=== PATIENT | female | born 1945 | race African-American/Black ===

== ENCOUNTER 2016-07-11 07:05 | Outpatient (CLI) | payer MEDICARE ==
--- NOTE | 2016-07-11 14:53 | Ultrasound Report ---
RIGHT UPPER QUADRANT ULTRASOUND: HISTORY: Hepatitis B. Technique: Transabdominal ultrasound imaging with Doppler interrogation. FINDINGS: The gallbladder is sonolucent with no evidence of stones, polyps or wall thickening. The common duct is normal in caliber. Images of the liver parenchyma, pancreas, right kidney and aorta are within normal limits. 2.3 cm cyst at the superior pole of the right kidney is stable. No perihepatic ascites. IMPRESSION: Unremarkable right upper quadrant ultrasound. Stable right renal cyst. No change since 11/16/15.
== END 2016-07-11 07:06 | disposition home or self-care (01) ==
LOC: US 07:05
PROVIDERS: ATTEND Internal Medicine Gastroenterology
DX: B19.10 Unspecified viral hepatitis B without hepatic coma (principal); N28.1 Cyst of kidney, acquired
CPT/HCPCS: 76705

== ENCOUNTER 2019-10-21 10:27 | Emergency (ER) | payer MEDICARE ==
[2019-10-21] MEDS ORDERED: ONDANSETRON 4 MG ODT TAB PO ONE (13:25)
[2019-10-21] MEDS ORDERED: ACETAMINOPHEN 325 MG TAB PO ONE (13:25)
--- NOTE | 2019-10-21 13:38 | Emergency Department Report ---
- General Time Seen by Provider: 10/21/19 13:24 Source: patient Mode of arrival: Ambulatory Limitations: No Limitations - History of Present Illness Initial Comments: Patient is a 74-year-old female presents emergency room with complaints of a fever that began 3 days ago. She has associated sore throat, nausea, vomiting, body aches, cough. Patient states that she is concerned for COVID-19. She denies any diarrhea, shortness of breath, chest pain, abdominal pain. She has a past medical history of hepatitis B. She denies any allergies to medications. Patient states that she has been taking ibuprofen, Tylenol, TheraFlu. She states that she did not take any medication today. - Related Data Home Medications Medication Instructions Recorded Confirmed Last Taken Dexlansoprazole [Dexilant] 60 mg PO QDAY 08/04/15 08/04/15 Unknown Fenofibrate [Lofibra] 54 mg PO QDAY 08/04/15 08/04/15 08/04/15 [place]-3/Dha/Epa/Fish Oil [[place] 3 1 each PO QDAY 08/04/15 08/04/15 Unknown 500 Softgel] Sucralfate 1 gm PO QDAY 08/04/15 08/04/15 Unknown Previous Rx's Medication Instructions Recorded Last Taken Type Benzocaine/Mentho [Cepacol X 1 each MM Q6HR PRN #1 packet 10/21/19 Unknown Rx Strength] Ciprofloxacin HCl [Ciprofloxacin 250 mg PO BID 7 Days #14 tablet 10/21/19 Unknown Rx TAB] Miconazole Nitrate [Miconazole 7] 100 mg VG QHS #7 supp.vag 10/21/19 Unknown Rx Promethazine [Phenergan] 25 mg PO Q8HR PRN #7 tab 10/21/19 Unknown Rx Allergies Allergy/AdvReac Type Severity Reaction Status Date / Time Penicillins Allergy Hives Verified 12/07/12 05:26 ED Review of Systems ROS: Stated complaint: Other details as noted in HPI Comment: All other systems reviewed and negative ED Past Medical Hx - Past Medical History Hx Liver Disease: Yes Additional medical history: Vertigo - Surgical History Additional Surgical History: gall bladder surgery - Social History Smoking Status: Never Smoker Substance Use Type: None - Medications Home Medications: Home Medications Medication Instructions Recorded Confirmed Last Taken Type Dexlansoprazole [Dexilant] 60 mg PO QDAY 08/04/15 08/04/15 Unknown History Fenofibrate [Lofibra] 54 mg PO QDAY 08/04/15 08/04/15 08/04/15 History [place]-3/Dha/Epa/Fish Oil [[place] 3 1 each PO QDAY 08/04/15 08/04/15 Unknown History 500 Softgel] Sucralfate 1 gm PO QDAY 08/04/15 08/04/15 Unknown History Benzocaine/Mentho [Cepacol X 1 each MM Q6HR PRN #1 packet 10/21/19 Unknown Rx Strength] Ciprofloxacin HCl [Ciprofloxacin 250 mg PO BID 7 Days #14 tablet 10/21/19 Unknown Rx TAB] Miconazole Nitrate [Miconazole 7] 100 mg VG QHS #7 supp.vag 10/21/19 Unknown Rx Promethazine [Phenergan] 25 mg PO Q8HR PRN #7 tab 10/21/19 Unknown Rx ED Physical Exam - General General appearance: alert, in no apparent distress - Head Head exam: Present: atraumatic, normocephalic - Eye Eye exam: Present: normal appearance - ENT ENT exam: Present: mucous membranes moist, other (mild posterior oropharynx erythema, no tonsillar hypertrophy or exudates, no signs of thrush, uvula is midline, no uvular edema or deviation, no trismus, no tongue elevation, no m uffled voice) - Respiratory Respiratory exam: Present: normal lung sounds bilaterally. Absent: respiratory distress, wheezes, rales, rhonchi, stridor, chest wall tenderness, accessory muscle use, decreased breath sounds, prolonged expiratory - Cardiovascular Cardiovascular Exam: Present: regular rate, normal rhythm, normal heart sounds. Absent: systolic murmur, diastolic murmur, rubs, gallop - Neurological Exam Neurological exam: Present: alert, oriented X3 - Psychiatric Psychiatric exam: Present: normal affect, normal mood - Skin Skin exam: Present: warm, dry, intact ED Course Vital Signs 10/21/19 15:22 Temperature 99.4 F Pulse Rate 83 Respiratory 17 Rate Blood Pressure 112/72 O2 Sat by Pulse 97 Oximetry ED Medical Decision Making - Lab Data Result diagrams: 10/21/19 13:37 10/21/19 13:37 Lab Results 10/21/19 10/21/19 10/21/19 Range/Units 13:37 13:37 15:00 WBC 6.9 (4.5-11.0) K/mm3 RBC 5.23 H (3.65-5.03) M/mm3 Hgb 15.1 H (10.1-14.3) gm/dl Hct 46.8 H (30.3-42.9) % MCV 90 (79-97) fl MCH 29 (28-32) pg MCHC 32 (30-34) % RDW 15.4 H (13.2-15.2) % Plt Count 253 (140-440) K/mm3 Lymph % (Auto) 13.6 (13.4-35.0) % Duval % (Auto) 9.5 H (0.0-7.3) % Eos % (Auto) 0.0 (0.0-4.3) % Baso % (Auto) 0.5 (0.0-1.8) % Lymph # 0.9 L (1.2-5.4) K/mm3 Duval # 0.7 (0.0-0.8) K/mm3 Eos # 0.0 (0.0-0.4) K/mm3 Baso # 0.0 (0.0-0.1) K/mm3 Seg Neutrophils % 76.4 H (40.0-70.0) % Seg Neutrophils # 5.3 (1.8-7.7) K/mm3 Sodium 135 L (137-145) mmol/L Potassium 4.8 (3.6-5.0) mmol/L Chloride 97.7 L (98-107) mmol/L Carbon Dioxide 22 (22-30) mmol/L Anion Gap 20 mmol/L BUN 11 (7-17) mg/dL Creatinine 0.8 (0.7-1.2) mg/dL Estimated GFR > 60 ml/min BUN/Creatinine Ratio 14 % Glucose 95 (65-100) mg/dL Calcium 9.3 (8.4-10.2) mg/dL Total Bilirubin 0.40 (0.1-1.2) mg/dL AST 56 H (5-40) units/L ALT 41 (7-56) units/L Alkaline Phosphatase 50 (35-129) units/L Total Protein 7.5 (6.3-8.2) g/dL Albumin 4.8 (3.9-5) g/dL Albumin/Globulin Ratio 1.8 % Urine Color Yellow (Yellow) Urine Turbidity Clear (Clear) Urine pH 6.0 (5.0-7.0) Ur Specific Randolph 1.011 (1.003-1.030) Urine Protein <15 mg/dl (Negative) mg/dL Urine Glucose (UA) Neg (Negative) mg/dL Urine Ketones Tr (Negative) mg/dL Urine Blood Neg (Negative) Urine Nitrite Neg (Negative) Urine Bilirubin Neg (Negative) Urine Urobilinogen < 2.0 (<2.0) mg/dL Ur Leukocyte Esterase Lg (Negative) Urine WBC (Auto) 46.0 H (0.0-6.0) /HPF Urine RBC (Auto) 2.0 (0.0-6.0) /HPF U Epithel Cells (Auto) 2.0 (0-13.0) /HPF Urine Mucus Few /HPF Urine Yeast (Budding) Few /HPF Group A Strep Rapid (Negative) 10/21/19 Range/Units Unknown WBC (4.5-11.0) K/mm3 RBC (3.65-5.03) M/mm3 Hgb (10.1-14.3) gm/dl Hct (30.3-42.9) % MCV (79-97) fl MCH (28-32) pg MCHC (30-34) % RDW (13.2-15.2) % Plt Count (140-440) K/mm3 Lymph % (Auto) (13.4-35.0) % Duval % (Auto) (0.0-7.3) % Eos % (Auto) (0.0-4.3) % Baso % (Auto) (0.0-1.8) % Lymph # (1.2-5.4) K/mm3 Duval # (0.0-0.8) K/mm3 Eos # (0.0-0.4) K/mm3 Baso # (0.0-0.1) K/mm3 Seg Neutrophils % (40.0-70.0) % Seg Neutrophils # (1.8-7.7) K/mm3 Sodium (137-145) mmol/L Potassium (3.6-5.0) mmol/L Chloride (98-107) mmol/L Carbon Dioxide (22-30) mmol/L Anion Gap mmol/L BUN (7-17) mg/dL Creatinine (0.7-1.2) mg/dL Estimated GFR ml/min BUN/Creatinine Ratio % Glucose (65-100) mg/dL Calcium (8.4-10.2) mg/dL Total Bilirubin (0.1-1.2) mg/dL AST (5-40) units/L ALT (7-56) units/L Alkaline Phosphatase (35-129) units/L Total Protein (6.3-8.2) g/dL Albumin (3.9-5) g/dL Albumin/Globulin Ratio % Urine Color (Yellow) Urine Turbidity (Clear) Urine pH (5.0-7.0) Ur Specific Randolph (1.003-1.030) Urine Protein (Negative) mg/dL Urine Glucose (UA) (Negative) mg/dL Urine Ketones (Negative) mg/dL Urine Blood (Negative) Urine Nitrite (Negative) Urine Bilirubin (Negative) Urine Urobilinogen (<2.0) mg/dL Ur Leukocyte Esterase (Negative) Urine WBC (Auto) (0.0-6.0) /HPF Urine RBC (Auto) (0.0-6.0) /HPF U Epithel Cells (Auto) (0-13.0) /HPF Urine Mucus /HPF Urine Yeast (Budding) /HPF Group A Strep Rapid Negative (Negative) Vital Signs 10/21/19 15:22 Temperature 99.4 F Pulse Rate 83 Respiratory 17 Rate Blood Pressure 112/72 O2 Sat by Pulse 97 Oximetry - Radiology Data Radiology results: report reviewed CHEST 2 VIEWS INDICATION: cough, fever. COMPARISON: None FINDINGS: Support devices: None. Heart: Within normal limits. Lungs/pleura: No acute air space or interstitial disease. No pneumothorax. Additional findings: None. IMPRESSION: No acute findings. Signer Name: Chris Maravilla Jr, MD Signed: 10/21/2019 2:42 PM Workstation Name: [id number] Transcribed By: TTR Dictated By: CHRIS MARAVILLA JR, MD Electronically Authenticated By: CHRIS MARAVILLA JR, MD Signed Date/Time: 10/21/191441 DD/ 40 TD/TT: - Medical Decision Making Patient is a 74-year-old female presents emergency room with complaints of a fever that began 3 days ago. She has associated sore throat, nausea, vomiting, body aches, cough. Patient states that she is concerned for COVID-19. She denies any diarrhea, shortness of breath, chest pain, abdominal pain. She has a past medical history of hepatitis B. She denies any allergies to medications. Patient states that she has been taking ibuprofen, Tylenol, TheraFlu. She states that she did not take any medication today. Vitals are normal. on exam: mild posterior oropharynx erythema, no tonsillar hypertrophy or exudates, no signs of thrush, uvula is midline, no uvular edema or deviation, no trismus, no tongue elevation, no muffled voice, breath sounds are clear bilaterally, no w/r/r. Rapid strep is negative. Labs are stable. UA shows evidence of UTI with white blood cells and leukocyte esterase. There is yeast present in the urine. CXR: No acute findings. 2-minute ambulating oxygen saturation performed by nurse and patient maintained sats of 99% on room air. Patient symptoms could be related to urinary tract infection however patient is presenting during a COVID-19 pandemic and suggested outpatient COVID-19 testing with patient, she does not meet inpatient or testing criteria for this hospital, her x-ray is normal, no hypoxia, no fever, no tachycardia, exercise oxygen saturation is normal. Discussed in detail with patient very strict return precautions. Discussed self quarantine. Patient given prescription for Phenergan, ciprofloxacin, miconazole, Cepacol. Advised patient Please take medication as prescribed. Please increase your fluid intake over the next several days. May take Tylenol as needed for fever or body aches. Follow-up with a primary care doctor for reexamination in 2 days. Return to emergency room immediately for any new or worsening symptoms including but not limited to difficulty breathing, shortness of breath, severe chest pain, unable to tolerate by mouth intake, etc. Please self quarantine for 2 weeks from the onset of your symptoms. Please do not go out in public. If you are around others at home please wear a mask. If you need to cough or sneeze please do so in a napkin and immediately throw it away and immediately wash your hands. Wash your hands frequently. Wipe everything down. Recommend for you to get COVID-19 testing, may have this done at primary care doctor, health department, [facility] drive thru testing centers. Critical care attestation.: If time is entered above; I have spent that time in minutes in the direct care of this critically ill patient, excluding procedure time. ED Disposition Clinical Impression: Sore throat, Cough, Yeast vaginitis Fever Qualifiers: Fever type: unspecified Qualified Code(s): R50.9 - Fever, unspecified Nausea & vomiting Qualifiers: Vomiting type: unspecified Vomiting Intractability: non-intractable Qualified Code(s): R11.2 - Nausea with vomiting, unspecified UTI (urinary tract infection) Qualifiers: Urinary tract infection type: acute cystitis Hematuria presence: without hematuria Qualified Code(s): N30.00 - Acute cystitis without hematuria Disposition: TO HOME OR SELFCARE Is pt being admited?: No Does the pt Need Aspirin: No Condition: Stable Instructions: COVID-19, Urinary Tract Infection in Women (ED), Vulvovaginal Candidiasis (ED), Viral Syndrome (ED) Additional Instructions: Please take medication as prescribed. Please increase your fluid intake over the next several days. May take Tylenol as needed for fever or body aches. Follow-up with a primary care doctor for reexamination in 2 days. Return to emergency room immediately for any new or worsening symptoms including but not limited to difficulty breathing, shortness of breath, severe chest pain, unable to tolerate by mouth intake, etc. Please self quarantine for 2 weeks from the onset of your symptoms. Please do not go out in public. If you are around others at home please wear a mask. If you need to cough or sneeze please do so in a napkin and immediately throw it away and immediately wash your hands. Wash your hands frequently. Wipe everything down. Recommend for you to get COVID- 19 testing, may have this done at primary care doctor, health department, [facility] drive thru testing centers. Prescriptions: Miconazole Nitrate [Miconazole 7] 100 mg VG QHS #7 supp.vag Benzocaine/Mentho [Cepacol X Strength] 1 each MM Q6HR PRN #1 packet PRN Reason: sore throat Ciprofloxacin HCl [Ciprofloxacin TAB] 250 mg PO BID 7 Days #14 tablet Promethazine [Phenergan] 25 mg PO Q8HR PRN #7 tab PRN Reason: Nausea And Vomiting Referrals: ABEL DAWSON, PAC [Primary Care Provider] - 2-3 Days Time of Disposition: 15:28 Print Language: AZERI
[2019-10-21 13:52] LABS: Basophils % (Auto) 0.5 % (0.0-1.8); Hematocrit 46.8 % (30.3-42.9); Hemoglobin 15.1 gm/dl (10.1-14.3); Lymphocytes # (Auto) 0.9 K/mm3 (1.2-5.4); Lymphocytes % (Auto) 13.6 % (13.4-35.0); Mean Corpuscular HGB Conc 32 % (30-34); Mean Corpuscular Volume 90 fl (79-97); Monocytes # (Auto) 0.7 K/mm3 (0.0-0.8); Monocytes % (Auto) 9.5 % (0.0-7.3); Platelet Count 253 K/mm3 (140-440); Red Blood Count 5.23 M/mm3 (3.65-5.03); Red Cell Distribution Width 15.4 % (13.2-15.2)
[2019-10-21 14:41] LABS: Alanine Aminotransferase 41 units/L (7-56); Albumin 4.8 g/dL (3.9-5); BUN/Creatinine Ratio 14; Blood Urea Nitrogen 11 mg/dL (7-17); Calcium 9.3 mg/dL (8.4-10.2); Hemolysis Index 43
--- NOTE | 2019-10-21 14:46 | XRay Report ---
CHEST 2 VIEWS INDICATION: cough, fever. COMPARISON: None FINDINGS: Support devices: None. Heart: Within normal limits. Lungs/pleura: No acute air space or interstitial disease. No pneumothorax. Additional findings: None. IMPRESSION: No acute findings. Signer Name: Chris Chery Jr, MD Signed: 10/21/2019 2:42 PM Workstation Name: [id number]
[2019-10-21 15:22] LABS: Bilirubin,Urine NEG (Negative); Blood,Urine NEG (Negative); Color,Urine Yellow (Yellow); Mucus,Urine FEW /HPF; Protein,Urine <15 mg/dL mg/dL (Negative); Urobilinogen,Urine < 2.0 mg/dL (<2.0)
[2019-10-21 15:26] VITALS: BP 112/72
== END 2019-10-21 16:22 | disposition home or self-care (01) ==
LOC: ED 10:27
DX: N76.0 Acute vaginitis (principal); B97.89 Other viral agents as the cause of diseases classified elsewhere; N39.0 Urinary tract infection, site not specified; Z79.899 Other long term (current) drug therapy; Z98.890 Other specified postprocedural states; Z88.0 Allergy status to penicillin
CPT/HCPCS: 36415; 71046; 80053; 81001; 85025; 87086; 87116; 87430; Q0162

== ENCOUNTER 2021-05-08 11:28 | Emergency (ER) | payer MEDICARE ==
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
[2021-05-08 14:15] VITALS: BP 108/58
== END 2021-05-08 14:18 | disposition home or self-care (01) ==
LOC: ED 11:28
DX: R51.9 Headache, unspecified (principal); I10 Essential (primary) hypertension; Z86.73 Personal history of transient ischemic attack (TIA), and cerebral infarction without residual deficits; K76.9 Liver disease, unspecified; Z79.899 Other long term (current) drug therapy; Z98.890 Other specified postprocedural states; Z88.0 Allergy status to penicillin; Y08.89XA Assault by other specified means, initial encounter; Y93.89 Activity, other specified; Y92.89 Other specified places as the place of occurrence of the external cause; Y99.8 Other external cause status
CPT/HCPCS: 70450; 99284

== ENCOUNTER 2021-09-10 11:17 | Emergency (ER) | payer MEDICARE ==
--- NOTE | 2021-09-10 11:48 | Emergency Department Report ---
HPI - General Chief Complaint: Neuro Symptoms/Deficit Time Seen by Provider: 09/10/21 11:43 - HPI HPI: [facility]/room 22 Patient is a 76-year-old female present with a chief complaint of right-sided facial numbness and dysarthria. The patient states she went to sleep last night at midnight in her usual state of health but when she awakened this morning at 08: 00 she noticed she had pain and numbness to the right side of her face in addition to difficulty speaking. Patient denies paresthesia elsewhere ED Past Medical Hx - Past Medical History Previous Medical History?: Yes Hx Hypertension: Yes Hx CVA: Yes Hx Liver Disease: Yes Additional medical history: Vertigo. Hep B - Surgical History Past Surgical History?: Yes Additional Surgical History: gall bladder surgery - Family History Family history: no significant - Social History Smoking Status: Never Smoker Substance Use Type: None - Medications Home Medications: Home Medications Medication Instructions Recorded Confirmed Last Taken Type Dexlansoprazole [Dexilant] 60 mg PO QDAY 08/04/15 08/04/15 Unknown History Fenofibrate [Lofibra] 54 mg PO QDAY 08/04/15 08/04/15 08/04/15 History [place]-3/Dha/Epa/Fish Oil [[place] 3 1 each PO QDAY 08/04/15 08/04/15 Unknown History 500 Softgel] Sucralfate 1 gm PO QDAY 08/04/15 08/04/15 Unknown History Benzocaine/Mentho [Cepacol X 1 each MM Q6HR PRN #1 packet 10/21/19 Unknown Rx Strength] Ciprofloxacin HCl [Ciprofloxacin 250 mg PO BID 7 Days #14 tablet 10/21/19 Unknown Rx TAB] Miconazole Nitrate [Miconazole 7] 100 mg VG QHS #7 supp.vag 10/21/19 Unknown Rx Promethazine [Phenergan] 25 mg PO Q8HR PRN #7 tab 10/21/19 Unknown Rx ED Review of Systems ROS: Stated complaint: RT SIDE FACE NUMBNESS SINCE 8AM Other details as noted in HPI Constitutional: no symptoms reported Eyes: denies: eye pain ENT: denies: throat pain Respiratory: no symptoms reported Cardiovascular: denies: chest pain Endocrine: no symptoms reported Gastrointestinal: denies: abdominal pain Genitourinary: denies: dysuria Musculoskeletal: denies: back pain Neurological: headache, paresthesias Physical Exam - Physical Exam Vital Signs: Vital Signs 09/10/21 11:30 Temperature 97.8 F Pulse Rate 91 H Respiratory 18 Rate Blood Pressure 119/77 [Right] O2 Sat by Pulse 95 Oximetry Physical Exam: GENERAL: The patient is well-developed well-nourished female sitting in wheelchair not appearing to be in acute distress. [] HEENT: Normocephalic. Atraumatic. Extraocular motions are intact. Patient has moist mucous membranes. NECK: Supple. Trachea midline CHEST/LUNGS: Clear to auscultation. There is no respiratory distress noted. HEART/CARDIOVASCULAR: Regular. There is no tachycardia. There is no gallop rub or murmur. ABDOMEN: Abdomen is soft, nontender. Patient has normal bowel sounds. There is no abdominal distention. SKIN: There is no rash. There is no edema. There is no diaphoresis. NEURO: The patient is awake, alert, and oriented. The patient is cooperative. Cranial nerves II through XII grossly intact with exception of V1, V2, V3 on the right with the patient has decreased sensation to light touch. There is forehead sparing. The patient has normal speech. GCS 15 MUSCULOSKELETAL: There is no evidence of acute injury. ED Course Vital Signs 09/10/21 11:30 Temperature 97.8 F Pulse Rate 91 H Respiratory 18 Rate Blood Pressure 119/77 [Right] O2 Sat by Pulse 95 Oximetry - Reevaluation(s) Reevaluation #1: 09/10/21 13:45 Patient states her speech difficulty and paresthesia has resolved ED Medical Decision Making - Lab Data Result diagrams: 09/10/21 12:22 09/10/21 12:22 Laboratory Tests 09/10/21 09/10/21 09/10/21 12:22 12:22 12:22 WBC 6.6 RBC 4.65 Hgb 14.0 Hct 42.1 MCV 90 MCH 30 MCHC 33 RDW 15.2 Plt Count 266 Lymph % (Auto) 18.7 Gilliam % (Auto) 7.9 H Eos % (Auto) 0.7 Baso % (Auto) 0.7 Lymph # (Auto) 1.2 Gilliam # (Auto) 0.5 Eos # (Auto) 0.0 Baso # (Auto) 0.0 Seg Neutrophils % 72.0 H Seg Neutrophils # 4.8 PT 13.4 INR 0.92 APTT 32.0 Thrombin Time 35.5 H Sodium 136 L Potassium 3.8 Chloride 99.2 Carbon Dioxide 28 Anion Gap 13 BUN 13 Creatinine 0.7 Estimated GFR > 60 BUN/Creatinine Ratio 19 Glucose 102 H Calcium 8.6 - EKG Data -: EKG Interpreted by Me EKG shows normal: sinus rhythm Rate: normal - EKG Data When compared to previous EKG there are: previous EKG unavailable Interpretation: nonspecific ST-T wave gurjit (Biphasic T waves lead V2) - Radiology Data Radiology results: report reviewed (CT head, CT brain, CTA neck), image reviewed (CT head, CTA brain, CTA neck) [facility] [address] [place] [address] Cat Scan Report Signed Patient: MAYRA HYMAN MR#: [id number] : 1945 Acct:[id number] Age/Sex: 76 / F ADM Date: 09/10/21 Loc: ED Attending Dr: Ordering Physician: ARI MENCHACA MD Date of Service: 09/10/21 Procedure(s): CT head/brain wo con Accession Number(s): [id number] cc: ARI MENCHACA MD CT HEAD WITHOUT CONTRAST INDICATION / CLINICAL INFORMATION: CODE STROKE PROTOCOL!! Right facial numbness, difficulty speaking. TECHNIQUE: All CT scans at this location are performed using CT dose reduction for ALARA by means of automated exposure control. COMPARISON: CT dated 05/08/21 FINDINGS: HEMORRHAGE: None. EXTRA-AXIAL SPACES: Normal in size and morphology for the patient's age. VENTRICULAR SYSTEM: Normal in size and morphology for the patient's age. CEREBRAL PARENCHYMA: No significant abnormality. No acute territorial infarct. MIDLINE SHIFT / HERNIATION: None. CEREBELLUM / BRAINSTEM: No significant abnormality. ORBITS: Normal as visualized. SOFT TISSUES: No significant abnormality. SKULL: No significant abnormality. PARANASAL SINUSES / MASTOID AIR CELLS: Normal as visualized. ADDITIONAL FINDINGS: None. IMPRESSION: 1. No acute intracranial abnormality. No significant change. CODE STROKE Time of Communication (PROP MAKER/CDT): 11:12 AM Licensed Practitioner Receiving Report: Dr. Menchaca in the ED Signer Name: Anjelica Martinez MD Signed: 09/10/2021 12:11 PM Workstation Name: [email or web address] Transcribed By: DT Dictated By: Juan Jose Martinez MD Electronically Authenticated By: Juan Jose Martinez MD Signed Date/Time: 09/10/21 1211 DD/ 1208 TD/TT: [facility] [address] [place] [address] Cat Scan Report Signed Patient: MAYRA HYMAN MR#: [id number] : 1945 Acct:[id number] Age/Sex: 76 / F ADM Date: 09/10/21 Loc: ED Attending Dr: Ordering Physician: ARI MENCHACA MD Date of Service: 09/10/21 Procedure(s): CT angio head Accession Number(s): [id number] cc: ARI MENCHACA MD CTA NECK WITH CON TRAST HISTORY: Right facial numbness; difficulty speaking COMPARISON: None. TECHNIQUE: Routine CTA of the neck was performed. 3-D/MIP reformats were postprocessed. Percentage stenosis is determined by direct quantitative measurements of diseased internal carotid artery diameter compared with normal distal internal carotid artery reference segments or by criteria similar to NASCET where applicable.All CT scans at this location are performed using CT dose reduction for ALARA by means of automated exposure control CONTRAST: 100 ml of Omnipaque 350 FINDINGS: Aortic arch: No significant abnormality. Cervical vertebral arteries: No significant abnormality. Common carotid arteries: No significant abnormality. Carotid bifurcations: Normal bilaterally Cervical internal carotid arteries: No significant abnormality. Additional findings: None. IMPRESSION: 1. No significant abnormality. CTA HEAD WITH CONTRAST TECHNIQUE: Routine non-contrast CT Head, CTA of the head and post-contrast CT Head are performed. 3-D/MIP reformats postprocessed. All CT scans at this location are performed using CT dose reduction for ALARA by means of automated exposure control FINDINGS: CTA Head: Intracranial vertebral arteries: No significant abnormality. Basilar artery: No significant abnormality. Posterior cerebral arteries: No significant abnormality. Intracranial internal carotid arteries: No significant abnormality. Anterior cerebral arteries: No significant abnormality. Middle cerebral arteries: No significant abnormality. Dural venous sinuses:Not optimally opacified. No significant abnormality. Additional findings: None. IMPRESSION: 1. No significant abnormality. Signer Name: Elizabeth Macedo MD Signed: 09/10/2021 1:01 PM Workstation Name: [id number] Transcribed By: BS Dictated By: Elizabeth Bocanegra MD Electronically Authenticated By: Elizabeth Bocanegra MD Signed Date/Time: 09/10/21 1301 DD/ 1256 - Differential Diagnosis CVA, trigeminal neuralgia, Webb's palsy Critical care attestation.: If time is entered above; I have spent that time in minutes in the direct care of this critically ill patient, excluding procedure time. ED Disposition Clinical Impression: TIA (transient ischemic attack) Disposition: ADMITTED INPATIENT Is pt being admited?: Yes Does the pt Need Aspirin: Yes Condition: Fair Time of Disposition: 13:45 (Care transferred to hospitalist (Dr. Gomez))
--- NOTE | 2021-09-10 11:54 | Consultation ---
History of Present Illness Consult date: 09/10/21 History of present illness: [place] [facility] Consult Note # Demographics Consult Type: Acute Stroke Level 1 (0-4.5 hrs) Patient Location: Emergency Room First Name: Nael Villela Last Name: Tracey Date of : 1945 Age: 76 Gender: Female Facility: [facility] Time of Initial Page ( Time): 09/10/2021, 11:40 Time of Return Call ( Time): 09/10/2021, 11:40 # HPI Chief Complaint: numbness History: Patient went to bed at midnight, & upon awakening at 8am had right facial numbness & difficulty speaking (latter resolved). The patient reported hitting the right side of her head 2 or 3 months ago. Last Known Normal: I have collected independent history specific to time last normal or last known well. We have collaborated with the provider and at this time, we have the most current timeline with the information that is available. Midnight 09/10/21 Duration: constant hours Possible Thrombolytic candidate: not on warfarin or NOACs no intracranial hemorrhage history no recent major surgery Quality: numbness # Scores Time of exam and NIHSS ( Time): 09/10/2021, 11:43 Level of Consciousness 1a: [0] = Alert; keenly responsive LOC Questions 1b: [0] = Answers both questions correctly LOC Commands 1c: [0] = Performs both tasks correctly Best Gaze 2: [0] = Normal Visual 3: [0] = No visual loss Facial Palsy 4: [0] = Normal symmetrical movements Motor Arm Left 5a: [0] = No drift Motor Arm Right 5b: [0] = No drift Motor Leg Left 6a: [0] = No drift Motor Leg Right 6b: [0] = No drift Limb Ataxia 7: [0] = Absent Sensory 8: [1] = Ukuw-pd-qsuxolja sensory loss Best Language 9: [0] = No aphasia Dysarthria 10: [0] = Normal Extinction and Inattention 11: [0] = No abnormality NIHSS Total: 1 Modified Prosper Scale (mRS) pre-stroke: [0] = No Symptoms Modified Elberta Scale total: 0 VAN Screening: Negative # Exam Vitals: 97.8 SBP: 119 DBP: 77 Mental Status: awake alert and oriented x 3 follows commands Language: normal speech Sensory: decreased sensation right face # ROS Pulmonary: no shortness of breath Cardiovascular: no chest pain # PMH-FH-SH Past Medical History: hyperlipidemia hypertension stroke Medications: antihypertensive lipid lowering agent plavix Allergies: penicillin # Assessment Impression: Ischemic Stroke (Acute) # Plan Thrombolytic/Intervention: NOT IV Thrombolysis or IA Intervention candidate Thrombolytic Exclusion: > 4.5 hours Woke up with symptoms Target Blood Pressure: SBP < [address] results Labs: B12 CBC comprehensive metabolic panel ESR hemoglobin A1c lipid panel thiamine troponin TSH urine drug screen ua Imaging: (urgency: STAT): CT Head without contrast CT Angiogram Head and CT Angiogram Neck AND call back with results if abnormal Imaging: (urgency: routine): MRI Brain without contrast Diagnostic Test: echo without bubble study Therapy/Evaluation: NPO until swallow evaluation PT/OT evaluation Medication: aspirin 81 mg PLUS clopidogrel (Plavix) 75 mg for 21 days, then monotherapy therafter start statin with goal of LDL < [address] results DVT Prophylaxis: SCD chemical DVT prophylaxis Other: permissive hypertension telemetry monitoring I have discussed my recommendations with the referring provider Disposition: admit Medications and Allergies Allergies Allergy/AdvReac Type Severity Reaction Status Date / Time Penicillins Allergy Hives Verified 12/07/12 05:26 Home Medications Medication Instructions Recorded Confirmed Last Taken Type Dexlansoprazole [Dexilant] 60 mg PO QDAY 08/04/15 08/04/15 Unknown History Fenofibrate [Lofibra] 54 mg PO QDAY 08/04/15 08/04/15 08/04/15 History [place]-3/Dha/Epa/Fish Oil [[place] 3 1 each PO QDAY 08/04/15 08/04/15 Unknown History 500 Softgel] Sucralfate 1 gm PO QDAY 08/04/15 08/04/15 Unknown History Benzocaine/Mentho [Cepacol X 1 each MM Q6HR PRN #1 packet 10/21/19 Unknown Rx Strength] Ciprofloxacin HCl [Ciprofloxacin 250 mg PO BID 7 Days #14 tablet 10/21/19 Unknown Rx TAB] Miconazole Nitrate [Miconazole 7] 100 mg VG QHS #7 supp.vag 10/21/19 Unknown Rx Promethazine [Phenergan] 25 mg PO Q8HR PRN #7 tab 10/21/19 Unknown Rx Physical Examination - Vital Signs Vital Signs: Vital Signs Temp Pulse Resp BP Pulse Ox 97.8 F 91 H 18 119/77 95 09/10/21 11:30 09/10/21 11:30 09/10/21 11:30 09/10/21 11:30 09/10/21 11:30
[2021-09-10] MEDS ORDERED: ASPIRIN 325 MG TAB PO ONE (12:11)
--- NOTE | 2021-09-10 12:15 | Cat Scan Report ---
CT HEAD WITHOUT CONTRAST INDICATION / CLINICAL INFORMATION: CODE STROKE PROTOCOL!! Right facial numbness, difficulty speaking. TECHNIQUE: All CT scans at this location are performed using CT dose reduction for ALARA by means of automated exposure control. COMPARISON: CT dated 05/08/21 FINDINGS: HEMORRHAGE: None. EXTRA-AXIAL SPACES: Normal in size and morphology for the patient's age. VENTRICULAR SYSTEM: Normal in size and morphology for the patient's age. CEREBRAL PARENCHYMA: No significant abnormality. No acute territorial infarct. MIDLINE SHIFT / HERNIATION: None. CEREBELLUM / BRAINSTEM: No significant abnormality. ORBITS: Normal as visualized. SOFT TISSUES: No significant abnormality. SKULL: No significant abnormality. PARANASAL SINUSES / MASTOID AIR CELLS: Normal as visualized. ADDITIONAL FINDINGS: None. IMPRESSION: 1. No acute intracranial abnormality. No significant change. CODE STROKE Time of Communication (DIRECTOR TALENT/CDT): 11:12 AM Licensed Practitioner Receiving Report: Dr. Nance in the ED Signer Name: Anjelica Martinez MD Signed: 09/10/2021 12:11 PM Workstation Name: [id number]
[2021-09-10 13:02] LABS: Basophils % (Auto) 0.7 % (0.0-1.8); Eosinophils % (Auto) 0.7 % (0.0-4.3); Hematocrit 42.1 % (30.3-42.9); Lymphocytes # (Auto) 1.2 K/mm3 (1.2-5.4); Lymphocytes % (Auto) 18.7 % (13.4-35.0); Mean Corpuscular HGB Conc 33 % (30-34); Mean Corpuscular Volume 90 fl (79-97); Monocytes # (Auto) 0.5 K/mm3 (0.0-0.8); Monocytes % (Auto) 7.9 % (0.0-7.3); Platelet Count 266 K/mm3 (140-440); Red Blood Count 4.65 M/mm3 (3.65-5.03); Red Cell Distribution Width 15.2 % (13.2-15.2)
[2021-09-10 13:04] LABS: Blood Urea Nitrogen 13 mg/dL (7-17); Calcium 8.6 mg/dL (8.4-10.2); Hemolysis Index 2
--- NOTE | 2021-09-10 13:05 | Cat Scan Report ---
CTA NECK WITH CONTRAST HISTORY: Right facial numbness; difficulty speaking COMPARISON: None. TECHNIQUE: Routine CTA of the neck was performed. 3-D/MIP reformats were postprocessed. Percentage s tenosis is determined by direct quantitative measurements of diseased internal carotid artery diamete r compared with normal distal internal carotid artery reference segments or by criteria similar to NA SCET where applicable.All CT scans at this location are performed using CT dose reduction for ALARA b y means of automated exposure control CONTRAST: 100 ml of Omnipaque 350 FINDINGS: Aortic arch: No significant abnormality. Cervical vertebral arteries: No significant abnormality. Common carotid arteries: No significant abnormality. Carotid bifurcations: Normal bilaterally Cervical internal carotid arteries: No significant abnormality. Additional findings: None. IMPRESSION: 1. No significant abnormality. CTA HEAD WITH CONTRAST TECHNIQUE: Routine non-contrast CT Head, CTA of the head and post-contrast CT Head are performed. 3-D /MIP reformats postprocessed. All CT scans at this location are performed using CT dose reduction for ALARA by means of automated exposure control FINDINGS: CTA Head: Intracranial vertebral arteries: No significant abnormality. Basilar artery: No significant abnormality. Posterior cerebral arteries: No significant abnormality. Intracranial internal carotid arteries: No significant abnormality. Anterior cerebral arteries: No significant abnormality. Middle cerebral arteries: No significant abnormality. Dural venous sinuses:Not optimally opacified. No significant abnormality. Additional findings: None. IMPRESSION: 1. No significant abnormality. Signer Name: Elizabeth Macedo MD Signed: 09/10/2021 1:01 PM Workstation Name: [id number]
[2021-09-10 13:20] LABS: BUN/Creatinine Ratio 19
[2021-09-10 13:23] LABS: INR 0.92 (0.87-1.13)
[2021-09-10 13:26] LABS: Thrombin Time 35.5 Sec. (15.1-19.6)
[2021-09-10] MEDS ORDERED: MAGNESIUM HYDROXIDE (MOM) ORAL LIQD UDC PO PRN (13:47)
[2021-09-10] MEDS ORDERED: ACETAMINOPHEN 325 MG TAB PO PRN (13:47)
[2021-09-10] MEDS ORDERED: METOCLOPRAMIDE 10 MG TAB PO PRN (13:47)
[2021-09-10] MEDS ORDERED: ONDANSETRON 4 MG/2 ML INJ IV PRN (13:47)
[2021-09-10] MEDS ORDERED: HYDROmorphone 0.5 MG/0.5 ML INJ IV PRN (13:47)
[2021-09-10] MEDS ORDERED: PROMETHAZINE 25 MG RECT SUPP PR PRN (13:47)
[2021-09-10] MEDS ORDERED: oxyCODONE /ACETAMINOPHEN 5-325MG TAB PO PRN (13:47)
--- NOTE | 2021-09-10 13:47 | History and Physical Report ---
History of Present Illness Chief complaint: My face is numb and my speech is slurred History of present illness: 76 YO Female with CVA, HTN, HBV, Vascular Dementia, Cerebral Atherosclerosis presents to ED for evaluation. Patient reports "my face is numb and my speech is slurred". Patient states that she was in her usual state of health at bedtime around 2200 hrs. Patient states that she awakened from sleep this m orning around 0800 hrs. and was found to have right-sided facial numbness and slurred speech. Patient transported to [facility] via private vehicle for further care and evaluation of the aforementioned symptoms. Upon arrival the patient was found to have a focal neurologic deficit. A code stroke was called. Patient seen and evaluated in the emergency department. All lab and imaging studies reviewed. Patient initiated on CVA protocol. Teleneurology consulted in ED. Patient had fever, chills, chest pain, palpitation, productive cough, trauma, recent contact, known exposure to COVID-19. Prior admission on 08/04/2015 reviewed. All medication listed at time of admission has been reconciled. Adv anced care planning conducted in ED. Past History Past Medical History: hepatitis, hypertension, stroke, other (See HPI) Past Surgical History: cholecystectomy Social history: single. denies: smoking, alcohol abuse, prescription drug abuse Family history: hypertension Medications and Allergies Allergies Allergy/AdvReac Type Severity Reaction Status Date / Time Penicillins Allergy Hives Verified 12/07/12 05:26 Home Medications Medication Instructions Recorded Confirmed Last Taken Type Dexlansoprazole [Dexilant] 60 mg PO QDAY 08/04/15 08/04/15 Unknown History Fenofibrate [Lofibra] 54 mg PO QDAY 08/04/15 08/04/15 08/04/15 [address] [place]-3/Dha/Epa/Fish Oil [[place] 3 1 each PO QDAY 08/04/15 08/04/15 Unknown History 500 Softgel] Sucralfate 1 gm PO QDAY 08/04/15 08/04/15 Unknown History Benzocaine/Mentho [Cepacol X 1 each MM Q6HR PRN #1 packet 10/21/19 Unknown Rx Strength] Ciprofloxacin HCl [Ciprofloxacin 250 mg PO BID 7 Days #14 tablet 10/21/19 Unknown Rx TAB] Miconazole Nitrate [Miconazole 7] 100 mg VG QHS #7 supp.vag 10/21/19 Unknown Rx Promethazine [Phenergan] 25 mg PO Q8HR PRN #7 tab 10/21/19 Unknown Rx Review of Systems Constitutional: no weight loss, no weight gain, no fever Ears, nose, mouth and throat: no ear pain, no ear discharge, no nose pain, no nasal congestion Breasts: no change in shape, no swelling, no mass Cardiovascular: no chest pain, no orthopnea, no palpitations, no rapid/irregular heart beat, no edema, no syncope Respiratory: no cough, no excessive sputum, no hemoptysis, no shortness of breath Gastrointestinal: no abdominal pain, no nausea, no diarrhea, no constipation, no hematemesis, no coffee ground emesis Genitourinary Female: no pelvic pain, no flank pain, no dysuria, no urinary frequency, no urgency Rectal: no pain, no incontinence, no bleeding Musculoskeletal: no neck stiffness, no neck pain, no shooting arm pain, no arm numbness/tingling, no shooting leg pain, no leg numbness/tingling Integumentary: no rash, no pruritis, no redness, no sores Neurological: transient paralysis, weakness, change in speech, motor d isturbance, no head injury, no tingling, no seizures Psychiatric: no anxiety, no change in sleep habits, no hypersomnia, no change in appetite, no change in libido, no suicidal ideation, no disorientation Endocrine: no cold intolerance, no polyphagia, no excessive thirst, no polydipsia, no polyuria, no nocturia, no excessive sweating Hematologic/Lymphatic: no easy bruising, no easy bleeding, no lymphedema Allergic/Immunologic: no urticaria, no persistent infections Exam - Constitutional Vitals: Temp Pulse Resp BP Pulse Ox 97.8 F 91 H 18 119/77 100 09/10/21 11:30 09/10/21 11:30 09/10/21 12:33 09/10/21 11:30 09/10/21 12:33 General appearance: Present: mild distress - EENT Eyes: Present: PERRL ENT: hearing intact, clear oral mucosa - Neck Neck: Present: supple, normal ROM - Respiratory Respiratory effort: normal Respiratory: bilateral: CTA - Cardiovascular Heart Sounds: Present: S1 & S2. Absent: rub, click - Extremities Extremities: pulses symmetrical, No edema Peripheral Pulses: within normal limits - Abdominal General gastrointestinal: Present: soft, non-tender, non-distended, normal bowel sounds Female genitourinary: Present: normal - Integumentary Integumentary: Present: clear, warm, dry - Musculoskeletal Musculoskeletal: gait normal, strength equal bilaterally - Psychiatric Psychiatric: appropriate mood/affect, intact judgment & insight - Neurologic Neurologic: CNII-XII intact, moves all extremities Results - Labs CBC & Chem 7: 09/10/21 12:09/10/21 12:22 Labs: Abnormal lab results 09/10/21 09/10/21 09/10/21 Range/Units 12: 12: 12: [place] % (Auto) 7.9 H (0.0-7.3) % Seg Neutrophils % 72.0 H (40.0-70.0) % Thrombin Time 35.5 H (15.1-19.6) Sec. Sodium 136 L (137-145) mmol/L Glucose 102 H (65-100) mg/dL Assessment and Plan - Patient Problems (1) CVA (cerebral vascular accident) Status: Acute Plan to address problem: CVA protocol: CT head, neuro check, seizure precautions, antiplatelet therapy, physical therapy consulted, Occupational Therapy consulted, speech therapy consulted, carotid Doppler, echocardiogram, lipid panel. (2) GERD (gastroesophageal reflux disease) Status: Chronic Qualifiers: Esophagitis presence: without esophagitis Qualified Code(s): K21.9 - Gastro-esophageal reflux disease without esophagitis Plan to address problem: PPI therapy (3) Hypertension Status: Acute Qualifiers: Hypertension type: primary hypertension Qualified Code(s): I10 - Essential (primary) hypertension Plan to address problem: Monitor blood pressure every shift, continue medical management. (4) Vascular dementia Status: Acute Qualifiers: Dementia behavioral disturbance: without behavioral disturbance Qualified Code(s): F01.50 - Vascular dementia without behavioral disturbance Plan to address problem: Verbal prompting, verbal redirection, benzodiazepine therapy as clinically indicated. (5) Cerebral atherosclerosis Status: Acute Plan to address problem: Risk factor reduction, supportive care, antiplatelet therapy. (6) DVT prophylaxis Status: Acute Plan to address problem: SCD to bilateral lower extremities while in bed (7) Advance care planning Status: Acute Plan to address problem: Disease education data, care plan discussed, diagnoses discussed, prognosis discussed, patient is full code. Patient and family acknowledge understanding and agreement with care plan, +30 minutes. (8) Preventative health care Status: Acute Plan to address problem: Patient counseled regarding risk factor reduction, medical optimization. Balanced diet, low-cholesterol diet. Patient counseled regarding outpatient follow-up with primary care physician for all age and risk factor appropriate screening test. +30 minutes.
[2021-09-10 17:17] VITALS: BP 112/58
--- NOTE | 2021-09-10 21:48 | Electrocardiograph Report ---
[facility] Test Date: 2021-09-10 Test Time: 12:48:33 Pat Name: MAYRA HYMAN Department: Room: Gender: F Acoustic Intelligence Specialist: BEN : 1945 Requested By: ARI MENCHACA Order Number: [id number] Reading MD: Coco Atkinson Measurements Intervals [place] Rate: 65 P: 11 AL: 168 QRS: -21 QRSD: 87 T: 23 QT: 406 QTc: 423 Interpretive Statements Sinus rhythm No previous ECG available for comparison Electronically Signed On 09-10-2021 21:47:58 EDT by Coco Atkinson
[2021-09-11] MEDS ORDERED: NON-FORMULARY EACH (Omega-3/Dha/Epa/Fish Oil [Omega 3 500 Softgel] 1 EACH Capsule) PO SCH (10:00)
[2021-09-11] MEDS ORDERED: SUCRALFATE 1 GM TAB PO SCH (10:00)
[2021-09-11] MEDS ORDERED: DEXLANSOPRAZOLE 60 MG PO SCH (10:00)
[2021-09-11] MEDS ORDERED: FENOFIBRATE 54 MG PO SCH (10:00)
[2021-09-11] MEDS ORDERED: PANTOPRAZOLE 40 MG TAB PO SCH (10:00)
== END 2021-09-10 17:05 | disposition left against medical advice (07) ==
LOC: ED 11:17
DX: G45.9 Transient cerebral ischemic attack, unspecified (principal); I10 Essential (primary) hypertension; Z86.73 Personal history of transient ischemic attack (TIA), and cerebral infarction without residual deficits; B19.10 Unspecified viral hepatitis B without hepatic coma; Z98.890 Other specified postprocedural states
CPT/HCPCS: 36415; 70450; 70496; 70498; 80048; 85025; 85610; 85670; 85730; 93005; 99284; C8929; Q9967; 93306